=== PATIENT | male | born 1940 | race Caucasian/White ===

== ENCOUNTER 2022-05-05 10:46 | Inpatient (IN) | payer MEDICARE, BC ==
[~2022-05-05] VITALS: Ht 185.4 cm; Wt 73.3 kg
[2022-05-05] VITALS (509 sets, daily range): BP systolic 103–106; BP diastolic 54–59; PULSE 77–87; TEMP 98–98.5; O2SAT 81–100
--- NOTE | 2022-05-05 11:15 | NUR ---
PT ADMITTED FROM [facility] FOR GI BLEED. PT IS AXOX3 BUT ANIAK. VSS. PT'S BP 130'S. PT ORIENTED TO ROOM AND FLOOR. PT INSTRUCTED TO CALL WITH ALL NEEDS AND HOW TO USE CALL LIGHT. NOTIFIED OF ARRIVAL. 1130 FAMILY TAKEN BEDSIDE AND INFORMED WE ARE WAITING ON PHYSICIAN TO SEE PT.
[2022-05-05] MEDS ORDERED: COENZYME Q-10100 M1 PO (11:30)
[2022-05-05] MEDS ORDERED: OMEGA-3 FISH1000 MG PO (11:31)
[2022-05-05] MEDS ORDERED: POMEGRANATE WIT1 CAP PO (11:31)
[2022-05-05] MEDS ORDERED: ASPIRIN 81M81 MG/TA2 PO (11:31)
[2022-05-05] MEDS ORDERED: VITAMIN D362.5 MC1 PO (11:32)
[2022-05-05 13:20] LABS: BASO % 0.3 % (0.0-2.0); EOS # 0.2 K/mm3 (0.0-0.7); EOS % 1.6 % (0.0-4.0); GRAN # 9.8 K/mm3 (1.4-6.5); GRAN % 73.2 % (42.2-75.2); LYMPH # 2.2 K/mm3 (1.2-3.4); LYMPH % 16.7 % (20.0-51.0); MEAN CELL VOLUME 96 fl (80.0-100.0); MEAN CORPUSCULAR HGB CONC 34 g/dl (33.0-37.0); MEAN PLATELET VOLUME 10.2 fl (7.4-10.4); MONO % 7.5 % (1.7-9.3); PLATELET COUNT 229 K/mm3 (130-400); RED BLOOD COUNT 2.56 M/mm3 (4.20-5.60)
[2022-05-05 13:21] LABS: HEMATOCRIT 24.6 % (42.0-52.0); HEMOGLOBIN 8.3 g/dl (13.5-18.0); MEAN CORPUSCULAR HEMOGLOBIN 32 pg (27-31)
[2022-05-05 13:43] LABS: CALCIUM 8.2 mg/dL (8.4-10.2); CREATININE, serum 0.94 mg/dL (0.72-1.25); POTASSIUM 4.8 mmol/L (3.5-4.5)
--- NOTE | 2022-05-05 14:06 | NUR ---
,P NOTIFIED OF ELEVATED TROPONIN. ORDER RECEIVED FOR CARDIOLOGY CONSULT. TRISTON RN WITH CARDIOLOGY NOTIFIED OF CONSULT AND LABS. PT SEES AT [facility] FOR CARDIOLOGY OUTPATIENT.
--- NOTE | 2022-05-05 16:25 | NUR ---
1530- CALLED THIS RN WITH EKG RESULTS SHOWING POSSIBLE INFERIOR IN. PTS VSS. PT STATES HAVING A LITTLE UPPER BACK CHEST PAIN. DR.SINGHP NOTIFIED. PT PLACED ON OXYGEN. PRODUCT DELIVERY SPECIALIST NOTIFIED OF NEED TO TRANSFER OUT FOR REDUCTION FURNACE OPERATOR. BEDSIDE TO TALK WITH PT AND FAMILY. 1600-PT TAKEN TO CT. Analia HAWKINS CALLED TO CLARIFY CT. STATED WILL SCAN FOR POSSIBLE AAA. CT NOTIFIED. 1615-BACK FROM CT. PTS VSS. PT STATES HAVE SLIGHT CHEST PAIN AND UPPER BACK PAIN. PRN MORPHINE GIVEN. ON UNIT ATTEMPTING TO FIND ACCEPTING FACILITY.
--- NOTE | 2022-05-05 17:02 | NUR ---
P NOTIFIED OF ELEVATED TROP. AWAITING TRANSFER.
--- NOTE | 2022-05-05 20:30 | NUR ---
Patient resting quietly in bed. , Janes, at bedside. SBPs mid-low 80s, Kirsten notified. Orders received to increase IVF maintenance rate to 150 mL/hr. Levophed orders received if needed. Other vitals within normal limits. He remains on 2L oxygen via nasal cannula. Denies any pain or discomfort. Patient and family aware of pending transfer to [facility].
--- NOTE | 2022-05-05 20:50 | NUR ---
Report called to [facility] receiving nurse, Jamee.
--- NOTE | 2022-05-05 21:13 | NUR ---
Patient departs from unit with EMS at this time. Belongings sent with .
== END 2022-05-05 21:13 | disposition short-term general hospital (02) | DRG 378 ==
LOC: IMCU 10:46 → ICU 11:33
PROVIDERS: Physician Assistant; ADMIT Internal Medicine
DX: K92.1 Melena (principal); E87.1 Hypo-osmolality and hyponatremia; I25.10 Atherosclerotic heart disease of native coronary artery without angina pectoris; G89.29 Other chronic pain; M54.9 Dorsalgia, unspecified; G43.909 Migraine, unspecified, not intractable, without status migrainosus; J30.2 Other seasonal allergic rhinitis; F17.210 Nicotine dependence, cigarettes, uncomplicated; I50.9 Heart failure, unspecified; I95.9 Hypotension, unspecified; R73.9 Hyperglycemia, unspecified; D72.829 Elevated white blood cell count, unspecified; D64.9 Anemia, unspecified; Z88.1 Allergy status to other antibiotic agents; Z88.8 Allergy status to other drugs, medicaments and biological substances; Z95.1 Presence of aortocoronary bypass graft; Z95.5 Presence of coronary angioplasty implant and graft; I25.2 Old myocardial infarction; Z95.4 Presence of other heart-valve replacement; Z79.82 Long term (current) use of aspirin
CPT/HCPCS: C9113; J2270; J7030; Q9967